=== PATIENT | male | born 2000 | race Caucasian/White ===

== ENCOUNTER 2021-11-30 19:57 | Emergency (ER) | payer SELFPAY | END 2021-11-30 22:31 | disposition home or self-care (01) | LOC: MW.ED 19:57 | DX: S00.81XA Abrasion of other part of head, initial encounter (principal); F07.81 Postconcussional syndrome; W05.2XXA Fall from non-moving motorized mobility scooter, initial encounter | CPT/HCPCS: 99283; 99284 ==